=== PATIENT | female | born 1955 | race Caucasian/White ===

== ENCOUNTER 2022-12-12 04:07 | Emergency (ER) | payer OTHER ==
[~2022-12-12] VITALS: Ht 152.4 cm; Wt 77.1 kg
[2022-12-12 04:10] VITALS: BP_SYST 140
[2022-12-12] MEDS ORDERED: KETOROLAC TROMETHAMINE 30 MG VIAL IM ONE (04:30)
[2022-12-12] MEDS ORDERED: DIPHENHYDRAMINE HCL 25 MG CAPSULE PO ONE (04:30)
[2022-12-12] MEDS ORDERED: PROCHLORPERAZINE EDISYLATE 10 MG/2 ML VIAL IM ONE (04:30)
[2022-12-12] MEDS ORDERED: IBUP-1969 PO (05:44)
[2022-12-12] MEDS ORDERED: METO-290 PO (05:44)
[2022-12-12 05:53] VITALS: BP_SYST 140
== END 2022-12-12 05:52 | disposition home or self-care (01) ==
LOC: SED 04:07
DX: G43.909 Migraine, unspecified, not intractable, without status migrainosus (principal); J45.909 Unspecified asthma, uncomplicated; Z79.899 Other long term (current) drug therapy
CPT/HCPCS: 99285; 70450; 76376; 96372; Q0163; J1885; J0780